=== PATIENT | female | born 1995 | race Caucasian/White ===

== ENCOUNTER 2019-01-02 17:13 | Emergency (ER) | payer OTHER ==
[2019-01-02 17:21] VITALS: BMI 24.7
--- NOTE | 2019-01-02 19:36 | PDOC ---
History of Present Illness - General Chief Complaint: Diarrhea Stated Complaint: WEAKNESS/CHEST PAIN Time Seen by Provider: 01/02/19 19:16 - History of Present Illness Initial Comments: Scarlett Reynolds is a 23yo woman who presents to the ED with multiple chronic problems including left ear pain, mid-sternal chest pain, nausea/vomiting, heavy menstrual bleeding, shakiness, hoarse voice, and watery diarrhea. She states that she used to follow with ENT for the ear pain and hoarseness. She had several evaluations and was told that she would need an EGD. She notes that she was on an acid medication for a while, and her symptoms all resolved with one of the mediations, but she doesn't know what it was. She has had these problems for years. She stopped following with ENT due to lack of insurance and never had the EGD. She has additionally had chronic nausea and reproducible mid- sternal pain chronically. Currently, the pain is not present. She states that it is worst when she is very stressed or upset. Ms Reynolds also states that she has heavy menstrual bleeding that lasts up to 2 weeks, but she is not currently having her period. She states that she has been unable to get a gynecologic evaluation due to lack of insurance. She does not have any excessive pain along with the bleeding. Finally, Ms Reynolds says that she has frequent watery diarrhea. She states that she does not understand why as she eats a healthy diet and drinks only water. She says that she drinks 1-1.5 gallons of water per day as she "heard that for her weight she needs to drink at least 1.5 gallons a day." She denies any new or different symptoms. She has not had fevers, chills, changes in weight, sick contacts, or recent travel. She does endorse chronic cough, especially when she has the sternal pain, as well as "tremors" in her hands that have been present for years. She says that her ENT previously referred her to neurology for evaluation but she never followed up. Past History - Past Medical History Allergies/Adverse Reactions: Allergies Allergy/AdvReac Type Severity Reaction Status Date / Time No Known Allergies Allergy Verified 01/02/19 17:21 Home Medications: Ambulatory Orders NK [No Known Home Medication] 01/02/19 COPD: No - Suicide/Smoking/Psychosocial Hx Smoking History: Never smoked Review of Systems - Review of Systems Comments:: General: No fevers, no chills, no weight or appetite change, no malaise HEENT: No changes in vision, no changes in hearing, no congestion, no sore throat. +chronic L ear pain. +chronic hoarse voice CV: +reproducible midsternal pain chronically, no palpitations, no LE edema Pulm: No SOB, no cough, no wheezing GI: +nausea, +vomiting, +diarrhea, no melena : No frequency, no urgency, no dysuria Musc: No back pain, no joint swelling, no recent injury Skin: No rash, no lesions, no erythema Endo: No excessive thirst, no heat/cold intolerance. +excessive water intake Heme: No unusual bruising or bleeding, no swollen glands Neuro: No syncope, no numbness/tingling, no focal weakness, +chronic "shakiness " Vasc: No claudication Psych: No recent change in mood, no SI or HI *Physical Exam - Vital Signs Last Vital Signs Temp Pulse Resp BP Pulse Ox 98.3 F 84 18 106/66 99 01/02/19 17:18 01/02/19 17:18 01/02/19 17:18 01/02/19 17:18 01/02/19 17:18 - Physical Exam Comments: General: Comfortable, no acute distress HEENT: PERRL, EOMI, MMM, voice normal, normal neck ROM, no LAD, TM clear bilaterally Cards: RRR, no murmur appreciated, no reproducible pain Pulm: Comfortable on room air, clear to auscultation bilaterally Abd: Soft, nontender, nondistended : No CVA tenderness Ext: Atraumatic. No LE edema. ROM intact. Strength 5/5 and equal bilaterally Vasc: Extremities WWP. Skin: Normal color, no rashes or lesions Neuro: A&Ox3, CN grossly intact, normal speech, motor/sensory grossly intact and symmetric. Tremors reported by pt not observed. Psych: Mood appropriate to situation Moderate Sedation - Procedure Monitoring Vital Signs: Procedure Monitoring Vital Signs Temperature 98.3 F 01/02/19 17:18 Pulse Rate 84 01/02/19 17:18 Respiratory Rate 18 01/02/19 17:18 Blood Pressure 106/66 01/02/19 17:18 O2 Sat by Pulse Oximetry (%) 99 01/02/19 17:18 ED Treatment Course - LABORATORY CBC & Chemistry Diagram: 01/02/19 20:00 01/02/19 20:00 Medical Decision Making - Medical Decision Making 01/02/19 19:37 Scarlett Reynolds is a 23yo woman with chronic ENT problems (previously following with ENT) who presents with chronic left ear pain, chronic reproducible mid- sternal pain (not currently present) and hoarseness, chronic nausea/vomiting, heavy menstrual bleeding (not currently) and several weeks of watery diarrhea. She notes drinking at least a gallon of water per day. - Benign exam. VSS. - Complaints are all chronic, have not changed nor worsened today - Concern for electrolyte abnormalities given excessive water intake - Chest pain is not currently present, but reproducible sternal pain in the setting of nausea/vomiting, hoarse voice, and ENT concerns suggests reflux. Will recommend trial of PPI - Will need follow up with PMD, ENT, gyne 01/02/19 21:02 - Labs completed. No concerning abnormalities. No hyponatremia or other electolyte disturbances - UA negative, test negative. - Will refer for appropriate follow up - Plan to d/c home given chronicity of symptoms and normal workup Discussed with Dr George. Rody Dangelo PGY1 *DC/Admit/Observation/Transfer Diagnosis at time of Disposition: Ear pain, left, Mid sternal chest pain, Nausea and vomiting, Diarrhea - Discharge Dispostion Disposition: HOME Condition at time of disposition: Stable Decision to Admit order: No - Referrals Referrals: Debra Finney MD [Staff Physician] - Marcello Gonzalez MD [Staff Physician] - [facility] [Provider Group] Andrew Davey DO [Staff Physician] - - Patient Instructions Printed Discharge Instructions: Heartburn -- Overview, Diarrhea Additional Instructions: Discharge Instructions: You were seen in the emergency room for several problems including chronic ear pain, sternal pain, hoarse voice, nausea/vomiting, and diarrhea. You had blood tests to check your cell counts, electrolytes, kidneys, and liver. You had a urine test to make sure there was no sign of infection. All of your tests are normal. You have no infection, anemia, or abnormal electrolytes. Your kidneys and liver are working normally. Home Care and Follow Up: - Your sternal pain, nausea/vomiting, hoarse voice and possibly your ear pain could all be caused by acid reflux. You could consider taking a trial of acid medication such as omeprazole for 1-2 weeks daily to see if that improves your symptoms. When you have nausea or pain, you can try medications such as Maalox or Mylanta to see if they relieve the pain. - There is no need to drink excessive amounts of water if you are not thirsty. - Avoid dairy products or anything else that seems to irritate your stomach - You will need to make several appointments to follow up for your chronic symptoms. You have been referred to 1. Dr Finney - gynecology 2. Dr Davey - GI 3. Dr Gonzalez - ENT 4. [facility] at [place] - primary care You should call to make appointments within the next 1-2 weeks. Seek immediate medical care if you have worsening of your symptoms, you become dehydrated, you have shortness of breath, or you have any other medical emergency. - Post Discharge Activity Forms/Work/School Notes: Back to Work
--- NOTE | 2019-01-02 19:39 | PDOC ---
Attending Attestation - HPI HPI: 01/02/19 20:30 Patient is a 23 year old female with past medical history of ENT problems, who presents to the ED with multiple chronic complaints. She reports having chronic epigastric pain that radiates upwards to her esophagus which is associated with hoarseness, nausea, vomiting and diarrhea. She also reports a chronic left ear pain. Denies any recent travel, sick contacts, fevers or chills. Denies any cough, SOB, or urinary complaints. She reports drinking a gallon of water every day. Does not have a PCP. - Physicial Exam PE: 01/02/19 20:30 GENERAL: Well developed, well nourished. Awake and alert. No acute distress. HEENT: Normocephalic, atraumatic. TMs are normal, no perforation, no cerumen CARDIOVASCULAR: Regular rate and rhythm. No murmurs, rubs, or gallops. PULMONARY: No evidence of respiratory distress. ABDOMINAL: Soft. Non-tender. Non-distended. No rebound or guarding. EXTREMITIES: No cyanosis. No clubbing. No edema. No calf tenderness. SKIN: Warm and dry. Normal capillary refill. No rashes. No jaundice. NEUROLOGICAL: Alert, awake, appropriate. Cranial nerves 2-12 intact. - Medical Decision Making 01/02/19 20:33 Documentation prepared by Maria Elena Rollins, acting as certified medical aide for Kerry George MD. <Maria Elena Rollins - Last Filed: 01/02/19 20:30> - Resident Resident Name: Rody Dangelo - Medical Decision Making 01/02/19 21:07 23-year-old female presents with multiple complaints including chronic ear pain , chronic chest pain and nausea and vomiting chronically -Labs shows that her electrolytes are all within normal limits, she is a negative test, her CBC does not show any leukocytosis or anemia. Her vital signs are stable. She has no fever, no no chills and has appeared to be comfortable during her stay. She will be referred to ENT for her years and also further work up in our clinic at the [facility] <Kerry George - Last Filed: 01/02/19 21:08>
[2019-01-02 20:15] LABS: BASO % 0.5 % (0-2.0); HEMATOCRIT 40.4 % (32.4-45.2); HEMOGLOBIN 14.2 GM/dL (10.7-15.3); LYMPH % 21.1 % (8-40); MCHC 35.1 g/dl (32.0-36.0); MEAN CELL VOLUME 85.3 fl (80-96); MEAN PLT VOLUME 9.1 fl (7.5-11.1); MONO % 5.9 % (3.8-10.2); NEUT % 71.5 % (42.8-82.8); PLATELET COUNT 249 K/MM3 (134-434); RBC 4.73 M/mm3 (3.60-5.2); RDW 12.7 % (11.6-15.6); WHITE BLOOD COUNT 9.5 K/mm3 (4.0-10.0)
[2019-01-02 20:21] LABS: URINE APPEARANCE CLEAR; URINE BILIRUBIN NEGATIVE (<2.0 mg/dL); URINE COLOR LTYELLOW; URINE GLUCOSE (UA) NEGATIVE (NEGATIVE); URINE KETONE NEGATIVE (NEGATIVE); URINE LEUK ESTERASE NEGATIVE (NEGATIVE); URINE NITRITE NEGATIVE (NEGATIVE); URINE PROTEIN NEGATIVE (NEGATIVE); URINE UROBILINOGEN NEGATIVE mg/dL (0.2-1.0)
[2019-01-02 20:45] LABS: HCG,QUALITATIVE URINE Negative
[2019-01-02 20:48] VITALS: BP 106/67; PULSE 73; TEMP 99.3
[2019-01-02 20:59] LABS: ALBUMIN 4.2 g/dl (3.4-5.0); ALK PHOS 67 U/L (45-117); ANION GAP 7 MMOL/L (8-16); BILIRUBIN,TOTAL 0.4 mg/dL (0.2-1); BLOOD UREA NITROGEN 16 mg/dL (7-18); CALCIUM 9.2 mg/dL (8.5-10.1); CHLORIDE 105 mmol/L (98-107); CO2 26 mmol/L (21-32); GLUCOSE,RANDOM 76 mg/dL (74-106); MAGNESIUM 2.4 mg/dL (1.8-2.4); PHOSPHOROUS 3.4 mg/dL (2.5-4.9); POTASSIUM 4.5 mmol/L (3.5-5.1); SGOT/AST 29 U/L (15-37); SGPT/ALT 15 U/L (13-61); SODIUM 137 mmol/L (136-145); TOT PROT 8.1 g/dl (6.4-8.2)
== END 2019-01-02 21:46 | disposition home or self-care (01) ==
LOC: SUPCPDRO 17:13 → JER 17:13
DX: R07.9 Chest pain, unspecified (principal); R49.0 Dysphonia; R11.2 Nausea with vomiting, unspecified; R19.7 Diarrhea, unspecified; N93.8 Other specified abnormal uterine and vaginal bleeding; H92.02 Otalgia, left ear
CPT/HCPCS: 36415; 80053; 81003; 83735; 84100; 84703; 85025; 99284-25